=== PATIENT | female | born 1970 | race Caucasian/White ===

== ENCOUNTER 2019-01-10 19:57 | Emergency (ER) | payer BC ==
[2019-01-10] MEDS ORDERED: ONDANSETRON 4 MG/2 ML VIAL IVPB ONE ×2 (20:05→20:38)
[2019-01-10] MEDS ORDERED: SODIUM CHLORIDE 0.9% 500 ML INFUS.BAG IV ONE (20:05)
[2019-01-10] MEDS ORDERED: ONDANSETRON 4 MG/2 ML VIAL ONE ×2 (20:14→20:41)
[2019-01-10 20:19] VITALS: BP 131/88; PULSE 114; TEMP 99.3; BMI 19.5
[2019-01-10] MEDS ORDERED: METOCLOPRAMIDE HCL INJECTION 10 MG/2 ML VIAL IVPUSH ONE (21:44)
[2019-01-10] MEDS ORDERED: METOCLOPRAMIDE HCL INJECTION 10 MG/2 ML VIAL ONE (21:45)
--- NOTE | 2019-01-10 22:43 | PDOC ---
Documentation entered by Gerri Will SCRIBE, acting as scribe for Aayush Meier MD. Aayush Meier MD: This documentation has been prepared by the Suman andrade Brenda, SCRIBE, under my direction and personally reviewed by me in its entirety. I confirm that the documentation accurately reflects all work, treatment, procedures, and medical decision making performed by me. History of Present Illness - General Chief Complaint: Vomiting/Diarrhea Stated Complaint: VOMITING AND DIARRHEA History Source: Patient Exam Limitations: No Limitations - History of Present Illness Initial Comments: 01/10/19 20:24 The patient is a 48 year old female, with no reported significant PMH who presents to the emergency department with 4.5 hours of vomiting, nausea and diarrhea. Patient reports that 4 people in her home were diagnosed with a stomach virus and have also had symptoms of nausea, vomiting and diarrhea. Patient noted no subjective fever. The patient denies chest pain, shortness of breath, headache and dizziness. Denies constipation. Denies dysuria, frequency, urgency and hematuria. Allergies: NKA Past surgical history: None reported Social history: No reported history of drug use, tobacco use. Past History - Past Medical History Allergies/Adverse Reactions: Allergies Allergy/AdvReac Type Severity Reaction Status Date / Time No Known Allergies Allergy Verified 01/10/19 19:59 Home Medications: Ambulatory Orders Norethindrone-E.estradiol-Iron [Lo Loestrin Fe 1-10 Tablet] 1 tab PO DAILY 01/10 Ondansetron [Zofran *Odt*] 4 mg GT TID PRN #12 tab.rapdis 01/10/19 Review of Systems - Review of Systems Able to Perform ROS?: Yes Comments:: 01/10/19 20:24 GENERAL/CONSTITUTIONAL: No chills. No weakness. HEAD, EYES, EARS, NOSE AND THROAT: No change in vision. No ear pain or discharge. No sore throat. CARDIOVASCULAR: No chest pain or shortness of breath. RESPIRATORY: No cough, wheezing, or hemoptysis. GASTROINTESTINAL:(+) nausea, vomiting and diarrhea. No constipation. GENITOURINARY: No dysuria, frequency, or change in urination. MUSCULOSKELETAL: No joint or muscle swelling or pain. No neck or back pain. SKIN: No rash NEUROLOGIC: No headache, vertigo, loss of consciousness, or change in strength/ sensation. ENDOCRINE: No increased thirst. No abnormal weight change. HEMATOLOGIC/LYMPHATIC: No anemia, easy bleeding, or history of blood clots. ALLERGIC/IMMUNOLOGIC: No hives or skin allergy. *Physical Exam - Vital Signs Last Vital Signs Temp Pulse Resp BP Pulse Ox 99.3 F 114 H 20 131/88 100 01/10/19 20:01 01/10/19 20:01 01/10/19 20:01 01/10/19 20:01 01/10/19 20:01 - Physical Exam 01/10/19 20:25 GENERAL: Awake, alert, and fully oriented, in no acute distress HEAD: No signs of trauma EYES: PERRLA, EOMI, sclera anicteric, conjunctiva clear ENT: Auricles normal inspection, hearing grossly normal.. Moist mucosa NECK: Normal ROM, supple, no lymphadenopathy, JVD, or masses EXTREMITIES: Normal range of motion, no edema. No clubbing or cyanosis. No cords, erythema, or tenderness NEUROLOGICAL: Cranial nerves II through XII grossly intact. Normal speech, normal gait SKIN: Warm, Dry, normal turgor, no rashes or lesions noted. ED Treatment Course - Medications Given in the ED: ED Medications Discontinued Medications Generic Name Dose Route Start Last Admin Trade Name Freq PRN Reason Stop Dose Admin Metoclopramide HCl 10 mg 01/10/19 21:44 01/10/19 21:48 Reglan Injection - IVPUSH 01/10/19 21:45 10 mg ONCE ONE Administration Ondansetron HCl 4 mg 01/10/19 20:05 01/10/19 20:17 Zofran Injection IVPB 01/10/19 20:06 4 mg ONCE ONE Administration Ondansetron HCl 8 mg 01/10/19 20:38 01/10/19 20:45 Zofran Injection IVPB 01/10/19 20:39 8 mg ONCE ONE Administration Sodium Chloride 2,000 ml 01/10/19 20:05 01/10/19 20:17 Normal Saline - IV 01/10/19 20:06 2,000 ml ONCE ONE Administration Medical Decision Making - Medical Decision Making 01/11/19 06:17 abd nontender, non distended symptomatically improved after fluids, antiemetics abd still nontender multiple sick contacts/ PE c/w viral gastroenteritis Discharge - Discharge Information Problems reviewed: Yes Clinical Impression/Diagnosis: Gastroenteritis Condition: Stable Disposition: HOME - Additional Discharge Information Prescriptions: Ondansetron [Zofran *Odt*] 4 mg GT TID PRN #12 tab.rapdis PRN Reason: Nausea - Follow up/Referral - Patient Discharge Instructions Patient Printed Discharge Instructions: DI for Viral Gastroenteritis -- Adult - Post Discharge Activity
== END 2019-01-10 22:09 | disposition home or self-care (01) ==
LOC: FER 19:57
PROC: 3E033GC Introduction of Other Therapeutic Substance into Peripheral Vein, Percutaneous Approach (ICD-10-PCS; principal; 2019-01-10)
DX: K52.9 Noninfective gastroenteritis and colitis, unspecified (principal)
CPT/HCPCS: 99281-25

== ENCOUNTER 2020-09-10 17:20 | Inpatient (IN) | payer BC ==
[2020-09-10] MEDS ORDERED: SODIUM CHLORIDE 0.9% 500 ML INFUS.BAG IV ONE (17:42)
[2020-09-10] MEDS ORDERED: ACETAMINOPHEN 1000 MG/100 ML VIAL (NON FORMULARY) IVPB ONE (17:45)
[2020-09-10] MEDS ORDERED: ACETAMINOPHEN INJECTION 100 ML IVPB ONE (18:09)
[2020-09-10 18:17] LABS: HEMATOCRIT 34.3 % (32.4-45.2); HEMOGLOBIN 11.6 GM/dl (10.7-15.3); MCH 30.7 pg (25.7-33.7); MCHC 33.9 g/dl (32.0-36.0); MEAN CELL VOLUME 90.6 fl (80-96); PLATELET COUNT 67 10^3/uL (134-434); RBC 3.79 M/mm3 (3.60-5.2); RDW 12.6 % (11.6-15.6); WHITE BLOOD COUNT 2.7 K/mm3 (4.0-10.8)
[2020-09-10 18:30] LABS: ALBUMIN 3.5 g/dl (3.4-5.0); BILIRUBIN,TOTAL 1.3 mg/dl (0.2-1); CREATININE 0.7 mg/dl (0.55-1.3)
[2020-09-10 19:01] LABS: EPITHELIAL CELLS FEW /hpf
[2020-09-10 19:26] LABS: PLATELET ESTIMATE DECREASED
[2020-09-10] MEDS ORDERED: CEFTRIAXONE 1,000 MG in DEXTROSE 5%-WATER - 50 ML IVPB ONE (23:53)
[2020-09-10] MEDS ORDERED: SODIUM CHLORIDE 1,000 ML IV STA (23:54)
[2020-09-10] MEDS ORDERED: IBUPROFEN 600 MG TABLET (FP) PO ONE (23:54)
[2020-09-10] MEDS ORDERED: KETOROLAC TROMETHAMINE 30 MG/1 ML VIAL IVPUSH ONE (23:55)
[2020-09-10] MEDS ORDERED: KETOROLAC TROMETHAMINE 30 MG/1 ML VIAL ONE (23:56)
[2020-09-10] MEDS ORDERED: cefTRIAXone SODIUM 1 GM VIAL ONE (23:57)
[2020-09-11 02:14] VITALS: BMI 20.4
[2020-09-11] MEDS: SODIUM CHLORIDE 1,000 ML IV SCH (03:41)
[2020-09-11] MEDS: ACETAMINOPHEN 325 MG TABLET (FP) PO PRN ×3 (05:19→20:17)
[2020-09-11 07:51] LABS: BASO % 0.7 % (0-2.0); EOS % 0.2 % (0-4.5); HEMATOCRIT 29.4 % (32.4-45.2); HEMOGLOBIN 10.1 GM/dl (10.7-15.3); LYMPH % 28.6 % (8-40); MCH 31.2 pg (25.7-33.7); MCHC 34.4 g/dl (32.0-36.0); MEAN CELL VOLUME 90.6 fl (80-96); MEAN PLT VOLUME 7.1 fl (7.5-11.1); MONO % 23.3 % (3.8-10.2); NEUT % 47.2 % (42.8-82.8); PLATELET COUNT 55 10^3/uL (134-434); RBC 3.24 M/mm3 (3.60-5.2); RDW 12.6 % (11.6-15.6); WHITE BLOOD COUNT 2.5 K/mm3 (4.0-10.8)
[2020-09-11 08:19] LABS: ALBUMIN 2.8 g/dl (3.4-5.0); CALCIUM 7.9 mg/dl (8.5-10); CREATININE 0.6 mg/dl (0.55-1.3); TOT PROT 5.7 g/dl (6.4-8.2)
[2020-09-11] MEDS ORDERED: CEFTRIAXONE 2 GM in DEXTROSE 5%-WATER 100 ML IVPB SCH (10:00)
[2020-09-11] MEDS ORDERED: CEFTRIAXONE 2 GM-D5W BAG 2 GM/50 ML BAG IVPB SCH (10:00)
[2020-09-11] MEDS: AZITHROMYCIN IVPB 500 MG/250 ML BAG IVPB SCH (10:47)
[2020-09-11] MEDS ORDERED: ACETAMINOPHEN 1000 MG/100 ML VIAL (NON FORMULARY) IVPB ONE (11:00)
[2020-09-11] MEDS: ATOVAQUONE 750 MG/5 ML (UNIT-DOSE PACKAGING) PO SCH ×2 (12:20→21:25)
[2020-09-11] MEDS ORDERED: IBUPROFEN 800 MG/8 ML IJ IVPB ONE (12:30)
[2020-09-11] MEDS: ENOXAPARIN NA (PORCINE) 40 MG/0.4 ML DISP.SYRIN SQ SCH (14:31)
[2020-09-12] MEDS: SODIUM CHLORIDE 1,000 ML IV SCH (06:33)
[2020-09-12] MEDS: ACETAMINOPHEN 325 MG TABLET (FP) PO PRN (06:33)
[2020-09-12] MEDS ORDERED: ACETAMINOPHEN/CAFFEINE/BUTALBITAL 1 TAB PO ONE (06:52)
[2020-09-12 08:18] LABS: BASO % 0.8 % (0-2.0); EOS % 0.8 % (0-4.5); HEMATOCRIT 27.4 % (32.4-45.2); HEMOGLOBIN 9.4 GM/dl (10.7-15.3); LYMPH % 38.2 % (8-40); MCH 30.9 pg (25.7-33.7); MCHC 34.4 g/dl (32.0-36.0); MEAN CELL VOLUME 89.7 fl (80-96); MEAN PLT VOLUME 7.1 fl (7.5-11.1); MONO % 22.4 % (3.8-10.2); NEUT % 37.8 % (42.8-82.8); PLATELET COUNT 76 10^3/uL (134-434); RBC 3.05 M/mm3 (3.60-5.2); RDW 12.8 % (11.6-15.6)
[2020-09-12 08:26] LABS: WHITE BLOOD COUNT 1.9 K/mm3 (4.0-10.8)
[2020-09-12] MEDS: ENOXAPARIN NA (PORCINE) 40 MG/0.4 ML DISP.SYRIN SQ SCH (09:47)
[2020-09-12] MEDS: ATOVAQUONE 750 MG/5 ML (UNIT-DOSE PACKAGING) PO SCH ×2 (09:47→21:06)
[2020-09-12] MEDS: AZITHROMYCIN IVPB 500 MG/250 ML BAG IVPB SCH (09:47)
[2020-09-12] MEDS: IBUPROFEN 800 MG/8 ML IJ IVPB PRN (10:58)
[2020-09-13] MEDS: IBUPROFEN 800 MG/8 ML IJ IVPB PRN (06:41)
[2020-09-13 08:12] LABS: HEMATOCRIT 28.3 % (32.4-45.2); HEMOGLOBIN 9.8 GM/dl (10.7-15.3); MCH 31.1 pg (25.7-33.7); MCHC 34.5 g/dl (32.0-36.0); MEAN CELL VOLUME 90.1 fl (80-96); MEAN PLT VOLUME 6.9 fl (7.5-11.1); PLATELET COUNT 119 10^3/uL (134-434); RBC 3.14 M/mm3 (3.60-5.2); RDW 12.5 % (11.6-15.6)
[2020-09-13 08:19] LABS: WHITE BLOOD COUNT 1.9 K/mm3 (4.0-10.8)
[2020-09-13 08:20] LABS: ADD RBC MORPHOLOGY YES
[2020-09-13 08:34] LABS: ALBUMIN 2.9 g/dl (3.4-5.0); BILIRUBIN,TOTAL 0.8 mg/dl (0.2-1); CREATININE 0.6 mg/dl (0.55-1.3); MAGNESIUM 1.9 mg/dL (1.8-2.4); TOT PROT 5.6 g/dl (6.4-8.2)
[2020-09-13] MEDS: ATOVAQUONE 750 MG/5 ML (UNIT-DOSE PACKAGING) PO SCH (09:11)
[2020-09-13] MEDS: AZITHROMYCIN IVPB 500 MG/250 ML BAG IVPB SCH (09:11)
[2020-09-13] MEDS: ENOXAPARIN NA (PORCINE) 40 MG/0.4 ML DISP.SYRIN SQ SCH (09:12)
[2020-09-13] MEDS ORDERED: traMADol HCL 50 MG TABLET PO PRN ×3 (10:56→13:56)
[2020-09-13 12:02] LABS: PLATELET ESTIMATE DECREASED
[2020-09-13] MEDS ORDERED: IBUPROFEN 800 MG/8 ML IJ IVPB PRN (13:56)
[2020-09-13 14:33] VITALS: BP 110/80; PULSE 79; TEMP 98.7
== END 2020-09-13 17:05 | disposition home or self-care (01) | DRG 869 ==
LOC: FER 17:20 → INTOOBSV 09-11 01:14 → UNDOADMOB 09-11 01:14 → OBSVTOIN 09-11 01:14 → FM/S 09-11 01:14
PROVIDERS: ADMIT Internal Medicine Infectious Disease; ATTEND Nurse Practitioner Acute Care
DX: B60.00 Babesiosis, unspecified (principal); R50.9 Fever, unspecified; D69.6 Thrombocytopenia, unspecified; R51.9 Headache, unspecified; D72.819 Decreased white blood cell count, unspecified
CPT/HCPCS: 36415; 71045-TC-FY; 80053; 81003; 81015; 82728; 83605; 83615; 83735; 84703; 85025; 85027; 85651; 86140; 86618; 87040; 87086; 87207; 87804; 93005; 99285-25; C9803; J0131; U0003; U0005

== ENCOUNTER 2021-05-13 08:06 | Day surgery (SDC) | payer BC ==
[2021-05-08 15:29] VITALS: BMI 20.3
[2021-05-13 08:26] VITALS: TEMP 97.8
[2021-05-13 09:59] VITALS: BP 111/65; PULSE 68
== END 2021-05-13 10:01 | disposition home or self-care (01) ==
LOC: FASU-ENDO 08:06
PROVIDERS: ATTEND Internal Medicine Gastroenterology
PROC: 0DJD8ZZ Inspection of Lower Intestinal Tract, Via Natural or Artificial Opening Endoscopic (ICD-10-PCS; principal; 2021-05-13 09:10)
DX: Z12.11 Encounter for screening for malignant neoplasm of colon (principal)
CPT/HCPCS: 84703